=== PATIENT | male | born 2000 | race American Indian/Alaskan Native ===

== ENCOUNTER 2021-11-17 23:19 | Emergency (ER) | payer SELFPAY ==
[2021-11-18 06:54] VITALS: BP 96/64
--- NOTE | 2021-11-18 09:58 | Emergency Department Report ---
- General Chief complaint: Skin/Abscess/Foreign Body Stated complaint: BUG IN RIGHT EAR Time Seen by Provider: 11/18/21 09:57 Source: patient Mode of arrival: Ambulatory Limitations: No Limitations - History of Present Illness Initial comments: This is a 21-year-old -Prydeinig male who presents to the emergency room with sensation of a bulge and right ear. Patient states he felt something crawling in his ear last night. Patient states he can feel it moving around right now. He also reports a humming buzzing sound. Denies discharge, swelling, or pain. - Related Data Previous Rx's Medication Instructions Recorded Last Taken Type Carbamide Peroxide [Ear Drops] 14.8 ml OT BID #1 bottle 11/18/21 Unknown Rx Abscess Boil HPI - HPI Chief Complaint: Skin/Abscess/Foreign Body Stated Complaint: BUG IN RIGHT EAR Time Seen by Provider: 11/18/21 09:57 Home Medications: Previous Rx's Medication Instructions Recorded Last Taken Type Carbamide Peroxide [Ear Drops] 14.8 ml OT BID #1 bottle 11/18/21 Unknown Rx ED Review of Systems ROS: Stated complaint: BUG IN RIGHT EAR Other details as noted in HPI Constitutional: denies: chills, fever ENT: other (Bug in right ear) Respiratory: denies: cough, shortness of breath, wheezing Cardiovascular: denies: chest pain, palpitations Skin: denies: rash, lesions Neurological: denies: headache, weakness, paresthesias Psychiatric: denies: anxiety, depression ED Past Medical Hx - Medications Home Medications: Home Medications Medication Instructions Recorded Confirmed Last Taken Type Carbamide Peroxide [Ear Drops] 14.8 ml OT BID #1 bottle 11/18/21 Unknown Rx ED Physical Exam - General Limitations: No Limitations General appearance: alert, in no apparent distress - Head Head exam: Present: atraumatic, normocephalic - Expanded ENT Exam Expanded Ear exam: Present: normal external inspection TM/Canal exam: Cerumen Impaction: Right TM (partial impaction of right ear canal) Mouth exam: Present: normal external inspection Throat exam: Positive: normal inspection - Neck Neck exam: Present: normal inspection - Respiratory Respiratory exam: Present: normal lung sounds bilaterally. Absent: respiratory distress - Cardiovascular Cardiovascular Exam: Present: regular rate, normal rhythm. Absent: systolic murmur, diastolic murmur, rubs, gallop - Neurological Exam Neurological exam: Present: alert, oriented X3 - Psychiatric Psychiatric exam: Present: normal affect, normal mood - Skin Skin exam: Present: warm, dry, intact, normal color. Absent: rash ED Course Vital Signs 11/18/21 06:52 Temperature 98.1 F Pulse Rate 58 L Respiratory 18 Rate Blood Pressure 96/64 O2 Sat by Pulse 100 Oximetry ED Medical Decision Making - Medical Decision Making This is a 21 y.o. male that presents with sensation of a bug in right ear since last night. Patient is stable and was examined by me. Vitals normal. No visual ized foreign body in right ear partial cerumen in ear canal. Start Debrox earwax drops. Discussed plan with patient who agreed with plan. Discharged home in stable condition. Follow up with PCP in 24-72 hours. Critical care attestation.: If time is entered above; I have spent that time in minutes in the direct care of this critically ill patient, excluding procedure time. ED Disposition Clinical Impression: Foreign body sensation in ear canal Qualifiers: Laterality: right Qualified Code(s): H61.891 - Other specified disorders of right external ear Disposition: 01 HOME / SELF CARE / HOMELESS Is pt being admited?: No Condition: Stable Prescriptions: Carbamide Peroxide [Ear Drops] 14.8 ml OT BID #1 bottle Referrals: [facility] [Provider Group] - 3-5 Days SANDRA OLSON MD [Primary Care Provider] - 3-5 Days Forms: Accompanied Note, Work/School Release Form(ED) Time of Disposition: 11:34
== END 2021-11-18 11:38 | disposition home or self-care (01) ==
LOC: ED 23:19
DX: T16.1XXA Foreign body in right ear, initial encounter (principal); X58.XXXA Exposure to other specified factors, initial encounter; Y93.89 Activity, other specified; Y92.89 Other specified places as the place of occurrence of the external cause; Y99.8 Other external cause status
CPT/HCPCS: 99282